=== PATIENT | male | born 1970 | race Caucasian/White ===

== ENCOUNTER 2025-01-24 12:50 | Day surgery (SDC) | payer MEDICAID, SELFPAY ==
--- NOTE | 2025-01-21 07:00 | EKG_ITS ---
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
[2025-01-21 08:38] VITALS: BMI 30.2
[2025-01-21 09:46] LABS: Collection Type, Urine Clean Catch; Squamous Epithelial Cell,Urine 0 /hpf (0-5)
[2025-01-21 10:41] LABS: Basophils # (Auto) 0.1 Thou/mm3 (0.0-0.2); Basophils % (Auto) 1 % (0-2.5); Eosinophils # (Auto) 0.2 Thou/mm3 (0.0-0.5); Eosinophils % (Auto) 2 % (0-10); Hematocrit 49.0 % (41.0-53.0); Hemoglobin 16.5 g/dL (13.5-16.0); Immature Granulocytes Auto 0.02 Thou/mm3 (0.00-0.00); Lymphocytes # (Auto) 2.3 Thou/mm3 (1.0-4.8); Lymphocytes % (Auto) 29 % (10-50); Mean Corpuscular HGB Conc 33.7 g/dl (31.0-37.0); Mean Corpuscular Hemoglobin 30.1 pg (25.0-35.0); Mean Corpuscular Volume 89 fL (80-100); Monocytes # (Auto) 0.8 Thou/mm3 (0.0-0.8); Monocytes % (Auto) 10 % (0-12); Neutrophils # (Auto) 4.7 Thou/mm3 (1.8-7.7); Neutrophils % (Auto) 59 % (37-80); Nucleated Red Blood Cell # 0.00 Thou/mm3 (0.00-0.00); Nucleated Red Blood Cell % 0 /100 WBC (0); Platelet Count 275 Thou/mm3 (140-440); RDW Standard Deviation 44.8 fL (35.1-43.9); Red Blood Count 5.49 Miln/mm3 (4.50-5.90); White Blood Count 8.0 Thou/mm3 (3.8-10.6)
[2025-01-21 10:43] LABS: Bilirubin,Urine Negative (Negative); Blood,Urine Negative (Negative); Clarity,Urine Clear (Clear/Hazy); Color,Urine Colorless (Lt Yel-Yel); Glucose, Urine Negative (Negative); Ketones,Urine Negative (Negative); Leukocyte Esterase,Urine Negative (Negative); Nitrite,Urine Negative (Negative); PH,Urine 6.5 (5.0-7.0); Protein,Urine Negative (Neg - Trace); RBC,Urine 1 /hpf (0-3); Specific Gravity,Urine 1.007 (1.001-1.035); Urobilinogen,Urine Negative mg/dL (0.0-1.0); WBC,Urine < 1 /hpf (0-5)
[2025-01-21 10:47] LABS: Partial Thromboplastin Time 27.5 Seconds (22.0-36.0)
[2025-01-21 11:00] LABS: Alanine Aminotransferase 15 U/L (10-49); Albumin, Serum 4.4 gm/dL (3.5-5.0); Albumin/Globulin Ratio 1.8 (1.2-2.2); Alkaline Phosphatase 70 U/L (46-116); Anion Gap 11 (7-16); Aspartate Amino Transferase 17 U/L (0-34); BUN/Creatinine Ratio 9 Ratio (12-20); Bilirubin,Total 0.5 mg/dL (0.3-1.2); Blood Urea Nitrogen 10 mg/dL (9-23); Calcium 9.1 mg/dL (8.3-10.6); Calcium (Corrected) 9.1 mg/dL (8.5-10.1); Carbon Dioxide 27.4 mMol/L (20.0-31.0); Chloride 105 mMol/L (98-107); Creatinine (Component) 1.1 mg/dL (0.6-1.3); Estimated Creatinine Clearance 94.5 mL/min (>60); Globulin 2.4 gm/dL (2.3-3.5); Glucose 106 mg/dL (74-106); Osmolality,Calculated 283 (275-295); Potassium 4.0 mMol/L (3.4-5.1); Sodium 143 mMol/L (136-145); Total Protein 6.8 gm/dL (5.7-8.2); eGFR > 60 See Note
[2025-01-24 14:16] VITALS: BP 134/84; PULSE 51; RESP 13; TEMP 36.4; O2SAT 97; BMI 29.5
--- NOTE | 2025-01-24 16:56 | ESOP_ITS ---
Date of Procedure 01/24/25 Pre Op Diagnosis Infected epidermoid cyst right upper back Post Op Diagnosis Same. Procedure Excision of large epidermoid cyst right upper back on 01/24/2025 Findings This patient has a 6 cm x 4 cm x 3 cm infected epidermoid cyst on the right upper back that required excision. There was some purulence and therefore he will require oral antibiotics. Procedure Description The patient was evaluated in the preop area and the site and side were marked. Procedure were discussed and informed consent was obtained. Patient was taken to the operating room and positioned in the left side down lateral position. The back was prepped and draped in usual manner. MAC anesthesia was given and then local anesthesia 0.5% Marcaine with epinephrine was used for wide field block. Curvilinear elliptical incision was made and the cyst was dissected free from the subcutaneous tissue and was removed in its entirety. Hemostasis was achieved. The operative field is thoroughly irrigated with saline solution. Subcutaneous tissue was approximated by 3-0 Vicryl interrupted sutures and skin by 3-0 nylon interrupted sutures sterile dressing is applied. Patient taught the procedure very well. Anesthesia MAC and local (Marcaine 0.5% with epinephrine) Pathology / specimen Other (Epidermoid cyst right upper back) Estimated Blood Loss 5 Condition Stable Disposition PACU Surgeon Brain Pepe MD Surgical Staff Operation Date: 01/24/25 17:00 <No data on this case meets the specified criteria> Anesthesiologist Dr. Thacker Stroke Program Coordinator NAT Zee RN asian art curator Nelly Leija neurosurgical physician assistant
[2025-01-24 18:02] VITALS: BP 130/76; PULSE 53; RESP 13; TEMP 36.5; O2SAT 100
[2025-01-24 18:07] VITALS: BP 135/88; PULSE 55; RESP 20; O2SAT 99
[2025-01-24 18:12] VITALS: BP 128/71; PULSE 53; RESP 17; O2SAT 98
[2025-01-24 18:17] VITALS: BP 134/84; PULSE 54; RESP 13; O2SAT 98
[2025-01-24 18:32] VITALS: BP 133/80; PULSE 54; RESP 14; TEMP 36.4; O2SAT 99
== END 2025-01-24 18:45 | disposition home or self-care (01) ==
PROVIDERS: PCP Family Medicine; Referring Provider Specialist; Visit Provider Specialist
PROC: (CPT 11406; principal; 2025-01-24 16:45)
DX: L72.3 Sebaceous cyst (principal); Z01.810 Encounter for preprocedural cardiovascular examination
CPT/HCPCS: 11406; 36415; 80053; 81001; 85025; 85730; 93005; A4217; A4649; J0690; J1885; J2250; J2405; J2704; J3010

== ENCOUNTER → 2025-03-10 | Outpatient (BNVA) | payer MEDICAID, SELFPAY | END | disposition home or self-care (01) | PROVIDERS: PCP Family Medicine; Referring Provider Family Medicine; Visit Provider Urology | DX: N40.1 Benign prostatic hyperplasia with lower urinary tract symptoms (principal); N13.8 Other obstructive and reflux uropathy; R97.20 Elevated prostate specific antigen [PSA]; N52.9 Male erectile dysfunction, unspecified; E66.9 Obesity, unspecified; Z68.29 Body mass index [BMI] 29.0-29.9, adult | CPT/HCPCS: 81003; 99212; G0463 ==

== ENCOUNTER → 2025-04-21 | Outpatient (BNVA) | payer MEDICAID, SELFPAY | END | disposition home or self-care (01) | PROVIDERS: PCP Family Medicine; Referring Provider Family Medicine; Visit Provider Urology | DX: N40.1 Benign prostatic hyperplasia with lower urinary tract symptoms (principal); R39.12 Poor urinary stream | CPT/HCPCS: 51741; 51798 ==

== ENCOUNTER → 2025-04-26 | Outpatient (BNVA) | payer MEDICAID, SELFPAY | END | disposition home or self-care (01) | PROVIDERS: PCP Family Medicine; Referring Provider Family Medicine; Visit Provider Urology | DX: C61 Malignant neoplasm of prostate (principal); N40.1 Benign prostatic hyperplasia with lower urinary tract symptoms; N13.8 Other obstructive and reflux uropathy | CPT/HCPCS: 55700; 76942; 81003; 96372; A4649; J1580; J3490; A9270 ==

== ENCOUNTER → 2025-05-13 | Outpatient (BNVA) | payer MEDICAID, SELFPAY ==
--- NOTE | 2025-05-13 20:43 | ESPR_ITS ---
RE: SHERMAN VERMA : 1970 DATE OF SERVICE: 05/13/2025 CHIEF COMPLAINT: 1. BPH with urinary obstruction and LUTS with IPSS score of 24/35. Quality of life due to symptom 5/6. Patient did not take tamsulosin. I am starting him on tamsulosin 0.4 mg p.o. daily. 2. Elevated PSA of 6.4, this was done on 01/21/2025, free PSA is 8%. 3. Erectile dysfunction, patient is on testosterone depot 200 mg every 2 weeks. 4. Status post ultrasound and ultrasound guided biopsy of the prostate gland. HISTORY OF PRESENT ILLNESS: This is a 55-year-old gentleman. This patient has no family history of prostate cancer. Patient has BPH with urinary obstruction and LUTS. He was recommended tamsulosin 0.4 mg p.o. daily, patient did not take it. He has been on injections testosterone depot every 2 weeks for erectile dysfunction. He has no history of gross hematuria, dysuria, urinary tract infection. Patient had ultrasound and ultrasound guided biopsy of the prostate gland done on 04/26/2025. This revealed left lateral base with Nacho score of 3+3=6, 2% of the tissue is involved, left lateral mid gland involved with carcinoma with Golden score of 3+3=6, 5% of the tissue is involved. Patient has no fever, chills, gross hematuria, dysuria, urinary tract infection. Report of this was given to patient, discussed with him in great detail. His prostate gland volume is 120.2 mL. Past medical history, family history, review of systems and personal history, please refer to patient history form dated 05/13/2025, which is in HPI in EMR. PHYSICAL EXAMINATION: General condition is satisfactory, orientation x3. HEENT: Normocephalic, atraumatic. Eyes: No anemia or jaundice. Neck: Supple, trachea central. Thyroid is not enlarged. Extremities reveal no edema, cyanosis, or clubbing. Vital signs are stable, they are in HPI. Chest symmetrical. Heart regular rate and rhythm. Abdomen is obese, no masses. Liver, spleen, kidney not palpable. No CVA tenderness. Patient was recommended cystoscopic examination today, he canceled the appointment. He wants the procedure to be rescheduled. His BUN is 10, creatinine is 1.1, GFR is over 60. This was done on 01/21/2025. PSA on 11/14/2023 is 6.8 with a free PSA of 8%. He had uroflow bladder scan done, this revealed obstructive pattern. I did his Decipher genomic risk group. It is 0.29, which is low risk. 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 PLAN: MRI ultrasound fusion biopsy at [facility] for confirmation of prostate cancer. Procedure and complications are discussed with patient in great detail. Once again, went over guidelines and best practice protocols including MRI+US Bx - advised risks for higher-grade, clinically significant data integrity specialist, data integrity specialist progression/metastitic diease, etc. Discussed the nature of TRUSP/Bx and the random nature of sextant bxs, etc. Despite pros/cons of MRI bx, pt wishes to forego understanding the risks of doing so. . Cont w/Flomax in the interim. Patient has appointment with Dr. Reyez for consultation and recommendation all qeustions answered and pt was appreciative of the visit. Depending on the finding, patient may be a candidate for aquablation trial. All above issues were discussed with patient in great detail, question answered to his satisfaction, he verbalized understanding. For his obesity, I have counseled him regarding diet and exercise. DT: 13:01:26 TT: 20:41:00 Ref: [id number] - TID: [id number] MTDD
== END | disposition home or self-care (01) ==
PROVIDERS: PCP Family Medicine; Referring Provider Family Medicine; Visit Provider Urology
DX: N40.1 Benign prostatic hyperplasia with lower urinary tract symptoms (principal); N13.8 Other obstructive and reflux uropathy; C61 Malignant neoplasm of prostate; R97.20 Elevated prostate specific antigen [PSA]; N52.9 Male erectile dysfunction, unspecified; E66.9 Obesity, unspecified; Z71.3 Dietary counseling and surveillance; Z68.30 Body mass index [BMI] 30.0-30.9, adult; Z71.82 Exercise counseling
CPT/HCPCS: 99212; G0463